=== PATIENT | female | born 1970 | race Caucasian/White ===

== ENCOUNTER 2021-03-19 15:54 | Emergency (ER) | payer BC ==
[~2021-03-19] VITALS: Ht 160 cm; Wt 124.7 kg
[2021-03-19 16:08] VITALS: BP 147/77
--- NOTE | 2021-03-19 16:20 | NUR ---
TENT 2.
[2021-03-19] MEDS ORDERED: ACETAMINOPHEN EXTRA STRENGTH 500 MG TAB PO ONE (16:40)
[2021-03-19 17:15] VITALS: BP 147/77
--- NOTE | 2021-03-19 17:15 | NUR ---
PATIENT ELOPED FROM FACILITY. DISCHARGE INSTRUCTIONS NOT GIVEN TO PATIENT. DR. PETIT NOTIFIED.
== END 2021-03-19 17:15 | disposition left against medical advice (07) ==
LOC: MED 15:54
DX: J06.9 Acute upper respiratory infection, unspecified (principal); I10 Essential (primary) hypertension; E78.00 Pure hypercholesterolemia, unspecified
CPT/HCPCS: 99282